=== PATIENT | male | born 1985 | race Caucasian/White ===

== ENCOUNTER 2017-08-05 09:56 | Emergency (ER) | payer OTHER ==
[~2017-08-05] VITALS: Ht 172.7 cm; Wt 110.7 kg
[2017-08-05 10:01] VITALS: BP 149/94; Ht 172.7 cm; Wt 110.7 kg
== END 2017-08-05 10:40 | disposition home or self-care (01) ==
LOC: ED 09:56
DX: J02.9 Acute pharyngitis, unspecified (principal); R03.0 Elevated blood-pressure reading, without diagnosis of hypertension; G43.909 Migraine, unspecified, not intractable, without status migrainosus
CPT/HCPCS: J1100; Q0162

== ENCOUNTER 2018-12-14 10:56 | Emergency (ER) | payer OTHER ==
[~2018-12-14] VITALS: Ht 152.4 cm; Wt 114.8 kg
[2018-12-14 11:05] VITALS: Ht 152.4 cm; Wt 114.8 kg
[2018-12-14 12:22] VITALS: BP 130/88
== END 2018-12-14 12:22 | disposition home or self-care (01) ==
LOC: ED 10:56
DX: M54.12 Radiculopathy, cervical region (principal); G43.909 Migraine, unspecified, not intractable, without status migrainosus

== ENCOUNTER 2018-12-20 13:08 | Emergency (ER) | payer OTHER ==
[~2018-12-20] VITALS: Ht 147.3 cm; Wt 115.2 kg
[2018-12-20 13:10] VITALS: BP 146/90; Ht 147.3 cm; Wt 115.2 kg
== END 2018-12-20 14:27 | disposition home or self-care (01) ==
LOC: ED 13:08
DX: H92.01 Otalgia, right ear (principal); R50.9 Fever, unspecified; G43.909 Migraine, unspecified, not intractable, without status migrainosus